=== PATIENT | male | born 1955 | race Caucasian/White ===

== ENCOUNTER → 2016-07-15 | Outpatient (CLI) | payer BC ==
[~2016-07-15] MED LIST: AMOX-358 PO; HYDR-3702 PO; INDA1.25 PO; METR500T PO; NF-LISIN40 PO; PROM25TA14 PO
--- NOTE | 2016-07-15 13:17 | Diagnostic Imaging Report ---
INDICATION: Left knee pain for three days. COMPARISON: None available. TECHNIQUE: Three non-weightbearing views of the left knee were obtained. FINDINGS: There is no acute fracture or traumatic malalignment. Mild degenerative narrowing of the medial compartment joint space is present. Tiny osteophytes are present in the patellofemoral compartment. No knee joint effusion. IMPRESSION: 1. No acute osseous abnormality involving the left knee. 2. Mild osteoarthritis in the patellofemoral and medial compartments. Dictated by: Dictated on workstation # [id number]
== END ==
LOC: RAD 11:14
PROVIDERS: ATTEND Family Medicine
DX: M25.562 Pain in left knee (principal); M17.12 Unilateral primary osteoarthritis, left knee
CPT/HCPCS: 73562